=== PATIENT | male | born 1975 | race Caucasian/White ===

== ENCOUNTER 2017-02-10 14:43 | Emergency (ER) | payer BC ==
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
[2017-05-03] MEDS ORDERED: ZOLOFT50 MG PO (13:42)
[2017-05-03] MEDS ORDERED: COLACE-DPS100 MG PO (13:42)
[2017-05-03] MEDS ORDERED: XANAX DPS0.25 MG PO (13:42)
[2017-05-03] MEDS ORDERED: OXY IR DPS5 MG PO (13:42)
[2017-05-03] MEDS ORDERED: XARELTO10 MG PO (13:43)
[2017-05-03] MEDS ORDERED: DULCOLAX-DPS5 MG PO (13:43)
[2017-05-03] MEDS ORDERED: ZOFRAN4 MG PO (13:43)
[2017-05-03] MEDS ORDERED: NEURONTIN DPS100 MG PO (13:44)
[2017-05-03] MEDS ORDERED: FLEXERIL-DPS10 MG PO (13:44)
== END 2017-02-10 16:05 | disposition short-term general hospital (02) ==
LOC: ER 14:43
PROC: 0BH17EZ Insertion of Endotracheal Airway into Trachea, Via Natural or Artificial Opening (ICD-10-PCS; principal; 2017-02-10)
DX: S27.0XXA Traumatic pneumothorax, initial encounter (principal); S82.301B Unspecified fracture of lower end of right tibia, initial encounter for open fracture type I or II; S82.831B Other fracture of upper and lower end of right fibula, initial encounter for open fracture type I or II; S22.31XA Fracture of one rib, right side, initial encounter for closed fracture; S42.001A Fracture of unspecified part of right clavicle, initial encounter for closed fracture; S52.91XA Unspecified fracture of right forearm, initial encounter for closed fracture; S42.302A Unspecified fracture of shaft of humerus, left arm, initial encounter for closed fracture; S31.010A Laceration without foreign body of lower back and pelvis without penetration into retroperitoneum, initial encounter; V23.4XXA Motorcycle driver injured in collision with car, pick-up truck or van in traffic accident, initial encounter